=== PATIENT | male | born 1995 | race Two or more races ===

== ENCOUNTER 2019-04-12 15:18 | Emergency (ER) | payer MEDICAID ==
[~2019-04-12] VITALS: Ht 160 cm; Wt 63.0 kg
[2019-04-12] MEDS ORDERED: TETANUS AND DIPHTHERIA TOX/PF 0.5ML SYR (ADULT) IM ONE (17:45)
[2019-04-12] MEDS ORDERED: TETANUS, DIPHTHERIA, PERTUSSIS VAC/PF 0.5ML (>7YR OLD) IM ONE (18:00)
[2019-04-12 18:54] VITALS: BP 114/63
== END 2019-04-12 18:56 | disposition home or self-care (01) ==
LOC: ER 15:18
DX: M79.672 Pain in left foot (principal); W51.XXXA Accidental striking against or bumped into by another person, initial encounter; F17.200 Nicotine dependence, unspecified, uncomplicated; Y92.89 Other specified places as the place of occurrence of the external cause; Y93.A3 Activity, aerobic and step exercise; Y99.8 Other external cause status
CPT/HCPCS: 90471; 90714; 90715; 99283